=== PATIENT | female | born 1975 | race Caucasian/White ===

== ENCOUNTER 2017-03-11 12:05 | Emergency (ER) | payer MEDICAID ==
[2017-03-11] MEDS ORDERED: HYDROcod/ACETAM 5/325 MG TABLET PO STA (12:39)
[2017-03-11] MEDS ORDERED: HYDROcod/ACETAM 5/325 MG TABLET ONE (12:44)
== END 2017-03-11 12:47 | disposition home or self-care (01) ==
DX: K04.7 Periapical abscess without sinus (principal); S02.5XXA Fracture of tooth (traumatic), initial encounter for closed fracture; X58.XXXA Exposure to other specified factors, initial encounter; I10 Essential (primary) hypertension
CPT/HCPCS: 99283; A9270

== ENCOUNTER 2017-04-28 13:03 | Outpatient (CLI) | payer MEDICAID ==
[2017-04-28 14:53] LABS: HEMOGLOBIN A1C 0.88 g/dL
--- NOTE | 2017-04-28 15:40 | Ultrasound Report ---
ULTRASOUND RIGHT LATERAL LOWER LE04/28/2017 CLINICAL INDICATION: Palpable abnormality. TECHNIQUE: Real-time scanning was performed with career services representative static images obtained. FINDINGS: Ultrasound of the palpable abnormality identified by the patient was performed. At this site, there is a 0.7 x 0.6 x 0.4 cm lymph node. No sonographically suspicious findings are ap preciated. IMPRESSION: SMALL LYMPH NODE IN THE REGION OF THE PALPABLE ABNORMALITY. JOB #: [id number] EXT JOB #:
== END 2017-04-28 13:04 | disposition home or self-care (01) ==
LOC: DI 13:03
PROVIDERS: ATTEND Nurse Practitioner Gerontology
DX: R22.9 Localized swelling, mass and lump, unspecified (principal); R53.83 Other fatigue; E11.9 Type 2 diabetes mellitus without complications
CPT/HCPCS: 36415; 76882; 82306; 83036; 84443

== ENCOUNTER 2017-05-30 21:45 | Emergency (ER) | payer MEDICAID ==
[2017-05-30 21:50] VITALS: BP 153/94
[2017-05-30] MEDS ORDERED: CLINDAMYCIN 150 MG CAPSULE PO STA (21:55)
[2017-05-30] MEDS ORDERED: HYDROcod/ACET 5/325 Prepack 6 PO STA (21:55)
[2017-05-30] MEDS ORDERED: HYDROcod/ACET 5/325 Prepack 6 PO ONE (21:59)
--- NOTE | 2017-05-30 21:59 | ED Physician Documentation ---
PD HPI HEENT - Stated complaint Stated Complaint: RT FACIAL PAIN - Chief complaint Chief Complaint: Trauma Hd/Nk - History obtained from History obtained from: Patient - History of Present Illness Timing - onset: Other (Increasing pain of the right side of the jaw with mild facial swelling, no fevers. The pain is worse if she chews or opens her mouth or drinks hot or cold liquids. No URI symptoms. 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 HEENT: Tonsil/Adenoidectomy - Present Medications Home Medications: Ambulatory Orders Medication Instructions Recorded Confirmed Lisinopril [Zestril] 20 mg PO DAILY 06/10/13 03/11/17 Pregabalin [Lyrica] 225 mg PO BID 06/10/13 03/11/17 Metoprolol Tartrate 25 mg PO DAILY 01/17/15 03/11/17 Albuterol 1 mg INH ONCE PRN 01/13/16 03/11/17 Baclofen 10 mg PO TID PRN 01/13/16 03/11/17 Metformin HCl 500 mg PO BID 01/13/16 03/11/17 Venlafaxine HCl [Venlafaxine HCl 75 mg PO DAILY 01/13/16 03/11/17 ER] Cholecalciferol (Vitamin D3) 8,000 unit PO DAILY 01/25/16 03/11/17 [Vitamin D3] Amoxicillin 500 mg PO TID #30 capsule 03/11/17 Budesonide/Formoterol Fumarate 0 inh INH .FREQ 03/11/17 03/11/17 [Symbicort 160-4.5 Mcg Inhaler] HYDROcod/ACETAM 5/325 [[place] 5/325] 1 - 2 ea PO Q6H PRN #15 tablet 03/11/17 Clindamycin [Cleocin] 300 mg PO Q6H 10 Days 05/30/17 HYDROcod/ACETAM 5/325 [[place] 5/325] 1 - 2 ea PO Q6H PRN #15 tablet 05/30/17 - Allergies Allergies/Adverse Reactions: Allergies Allergy/AdvReac Type Severity Reaction Status Date / Time azithromycin Allergy Rash Verified 05/30/17 21:47 [From Zithromax Z-Javan] - Social History Does the pt smoke?: No Smoking Status: Never smoker Does the pt drink ETOH?: Yes Does the pt have substance abuse?: No - Immunizations Immunizations are current?: Yes - POLST Patient has POLST: No PD ED PE NORMAL - Vitals Vital signs reviewed: Yes - General General: Alert and oriented X 3, No acute distress - HEENT HEENT: Other (No trismus or facial swelling, TMs and canals are normal. She does have severe pain and tenderness of the second right mandibular premolar without sublingual edema.) - Neck Neck: Supple, no meningeal sign, No bony TTP - Neuro Neuro: Alert and oriented X 3, Normal speech - Psych Psych: Normal mood, Normal affect Results - Vitals Vitals: Vital Signs - 24 hr 05/30/17 21:48 Temperature 36.8 C Heart Rate 106 H Respiratory 20 Rate Blood Pressure 153/94 H O2 Saturation 100 Oxygen O2 Source Room air PD MEDICAL DECISION MAKING - ED course ED course: The [place] prescription monitoring program was queried with regard to this patient. No concerning findings were found. The patient and family were counseled as to the diagnosis and need for follow- up. I counseled the patient with regard to signs and symptoms that would necessitate an urgent reevaluation in the emergency department. They understand they are welcome to return at any time if worse or if not improving as expected. This document was made in part using voice recognition software. While efforts are made to proofread this documents, sound alike and grammatical errors may occur. Departure - Departure Disposition: 01 Home, Self Care Clinical Impression: Dental abscess Condition: Good Record reviewed to determine appropriate education?: Yes Instructions: ED Abscess Dental Prescriptions: Clindamycin [Cleocin] 300 mg PO Q6H 10 Days HYDROcod/ACETAM 5/325 [[place] 5/325] 1 - 2 ea PO Q6H PRN #15 tablet PRN Reason: Pain Comments: It is very important that she follow-up with a dentist. When it comes to dental problems like yours, the emergency department can only offer a short- term solution to your long-term problem. A couple of low cost options for dental care include: [facility] in [place], calls [phone] for an appointment Or [facility] in [place], call [phone] for an appointment. Your blood pressure was elevated today on check into the emergency department. This does not mean that you have hypertension, it is a common phenomenon to come to the emergency department and have elevated blood pressure. I recommend that she see her primary care physician within the week to have it rechecked when you are feeling better. Do not drink or drive while taking narcotic pain medication. Note that many narcotic pain relievers also contain Tylenol/acetaminophen. Please ensure that your total dose of acetaminophen from all sources does not exceed 3 g (3000 mg) per day. You may get constipated while on this medication. Take a stool softener such as Colace twice a day while you are on it. Also add an oezp-kvp-qkgzlqg laxative such as senna or MiraLAX on any day that you do not have a bowel movement. If you received a narcotic pain medication or sedative while in the emergency department, do not drive for the next 24 hours.
[2017-05-30] MEDS ORDERED: CLINDAMYCIN 150 MG CAPSULE PO ONE (22:00)
== END 2017-05-30 22:08 | disposition home or self-care (01) ==
LOC: ED 21:45
DX: K04.7 Periapical abscess without sinus (principal); I10 Essential (primary) hypertension
CPT/HCPCS: 99283; A9270

== ENCOUNTER 2017-07-04 09:56 | Outpatient (CLI) | payer MEDICAID ==
--- NOTE | 2017-07-04 11:42 | XRAY Report ---
FOUR-VIEW MANDIBLE: 07/04/2017 CLINICAL INDICATION: Infection. FINDINGS: AP, Chari's, bilateral oblique views of the mandible demonstrate no evidence of acute frac ture. No osteolysis is seen. No radiopaque foreign body is appreciated in the soft tissues. IMPRESSION: NORMAL MANDIBLE. JOB #: [id number] EXT JOB #:[id number]
== END 2017-07-04 09:57 | disposition home or self-care (01) ==
LOC: DI 09:56
PROVIDERS: ATTEND Physician Assistant
DX: M27.2 Inflammatory conditions of jaws (principal)
CPT/HCPCS: 70110

== ENCOUNTER 2019-03-31 11:36 | Outpatient (CLI) | payer OTHER, MEDICAID ==
--- NOTE | 2019-03-31 20:09 | XRAY Report ---
Reason: L-SPINE/LUMBAR PAIN, KNEE PAIN Procedure Date: 03/31/2019 Accession Number: [id number] / [id number] Procedure: XR - Lumbar Spine 2 View CPT Code: FULL RESULT: EXAM: LUMBOSACRAL SPINE RADIOGRAPHY. EXAM DATE: 03/31/2019 12:17 PM. CLINICAL HISTORY: L-spine/lumbar pain, knee pain. COMPARISONS: No lumbar comparison. CHEST ANGIO 06/11/2013 6:41 PM, XR CHEST PA AND LAT 12/26/2009 9:28 AM. TECHNIQUE: 3 views. FINDINGS: Alignment: No scoliosis. No significant listhesis. Accentuation of the lumbar lordosis. Bones: Five rjt-lrr-[id number] lumbar vertebral bodies are present. Small rudimentary pair of ribs at the T12 level (numbering designation confirmed with comparison to the chest CT angiogram). No fractures or bone lesions. Very mild anterior wedge configuration at T12 vertebral body is without change. Disks: Mild L4-L5 disk space narrowing. Facets: No degenerative changes. Sacroiliac Joints: Unremarkable. Soft Tissues: 3.2 cm right abdominal calcific density is compatible with cholelithiasis. The visualized bowel gas pattern is normal. IMPRESSION: 1. No acute adenopathy. 2. Mild L4-L5 degenerative disk disease. 3. Accentuation of the lumbar lordosis. 4. Evidence of cholelithiasis. RADIA
--- NOTE | 2019-03-31 20:09 | XRAY Report ---
Reason: L-SPINE/LUMBAR PAIN, KNEE PAIN Procedure Date: 03/31/2019 Accession Number: [id number] / [id number] Procedure: XR - Knee 3 View BILAT CPT Code: FULL RESULT: EXAMS: 1. RIGHT KNEE RADIOGRAPHY. 2. LEFT KNEE RADIOGRAPHY. EXAM DATE: 03/31/2019 12:14 PM. CLINICAL HISTORY:L-spine/lumbar pain, knee pain. COMPARISON: None. TECHNIQUE: 3 views each. FINDINGS: Bones: Normal. No fractures or bone lesions. Joints: Bilateral 3 compartment osteoarthritis which is mildly greater on the right than the left. Joint space narrowing is greatest in the patellofemoral and the medial compartments. There is moderate marginal spurring, greatest in the lateral and patellofemoral compartments. No subluxation. No definite joint effusion. Soft Tissues: Normal. No soft tissue swelling. IMPRESSION: 1. No acute abnormality. 2. Moderate 3 compartment osteoarthritis, right mildly greater than left. RADIA
== END 2019-03-31 11:37 | disposition home or self-care (01) ==
LOC: DI 11:36
DX: M51.36 Other intervertebral disc degeneration, lumbar region (principal); M40.56 Lordosis, unspecified, lumbar region; M17.0 Bilateral primary osteoarthritis of knee; K80.20 Calculus of gallbladder without cholecystitis without obstruction
CPT/HCPCS: 72100

== ENCOUNTER 2019-04-18 21:15 | Emergency (ER) | payer MEDICAID, OTHER ==
[2019-04-18] MEDS ORDERED: LIDOCAINE 2%-EPI 1:100000 20 ML MDV SUBQ STA (21:41)
--- NOTE | 2019-04-18 21:44 | ED Physician Documentation ---
History of Present Illness - Stated complaint Stated Complaint: PAIN IN RIGHT SIDE OF FACE - Chief complaint Chief Complaint: Heent - History obtained from History obtained from: Patient, Family - History of Present Illness Pain level max: 8 Pain level now: 8 - Additonal information Additional information: 43-year-old female presents to the emergency department the right lower facial swelling. This been ongoing issue for a few weeks. Has not seen a dentist. Was placed on penicillin but did not improve. Pain increasing today. No fevers. No coughing. No drainage. Nothing makes it better. 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 HEENT: Tonsil/Adenoidectomy - Present Medications Home Medications: Ambulatory Orders Medication Instructions Recorded Confirmed Lisinopril [Zestril] 20 mg PO DAILY 06/10/13 03/11/17 Pregabalin [Lyrica] 225 mg PO BID 06/10/13 03/11/17 Metoprolol Tartrate 25 mg PO DAILY 01/17/15 03/11/17 Albuterol 1 mg INH ONCE PRN 01/13/16 03/11/17 Baclofen 10 mg PO TID PRN 01/13/16 03/11/17 Metformin HCl 500 mg PO BID 01/13/16 03/11/17 Venlafaxine HCl [Venlafaxine HCl 75 mg PO DAILY 01/13/16 03/11/17 ER] Cholecalciferol (Vitamin D3) 8,000 unit PO DAILY 01/25/16 03/11/17 [Vitamin D3] Amoxicillin 500 mg PO TID #30 capsule 03/11/17 Budesonide/Formoterol Fumarate 0 inh INH .FREQ 03/11/17 03/11/17 [Symbicort 160-4.5 Mcg Inhaler] HYDROcod/ACETAM 5/325 [[place] 5/325] 1 - 2 ea PO Q6H PRN #15 tablet 03/11/17 Clindamycin [Cleocin] 300 mg PO Q6H 10 Days capsule 05/30/17 HYDROcod/ACETAM 5/325 [[place] 5/325] 1 - 2 ea PO Q6H PRN #15 tablet 05/30/17 Amox/Clav 875/125 [Augmentin] 1 each PO Q12H #20 tablet 04/18/19 Hydrocodone/Acetaminophen 1 - 2 each PO Q6H PRN #14 tablet 04/18/19 [Hydrocodon-Acetaminophen 5-325] - Allergies Allergies/Adverse Reactions: Allergies Allergy/AdvReac Type Severity Reaction Status Date / Time azithromycin Allergy Rash Verified 05/30/17 21:47 [From Zithromax Z-Javan] - Social History Does the pt smoke?: No Smoking Status: Never smoker Does the pt drink ETOH?: Yes Does the pt have substance abuse?: No - Immunizations Immunizations are current?: Yes - POLST Patient has POLST: No PD ED PE NORMAL - Vitals Vital signs reviewed: Yes - General General: Alert and oriented X 3, No acute distress - HEENT HEENT: Moist mucous membranes, Pharynx benign - Neck Neck: Supple, no meningeal sign - Cardiac Cardiac: RRR - Respiratory Respiratory: No respiratory distress, Clear bilaterally - Derm Derm: Warm and dry - Neuro Neuro: Alert and oriented X 3 PD ED PE EXPANDED - HEENT HEENT Visual: 1 - abscess (Gingival abscess along socket for tooth #28. poor dentition) Results - Vitals Vitals: Vital Signs - 24 hr 04/18/19 04/18/19 21:25 23:01 Temperature 36.8 C 36.1 C L Heart Rate 109 H 97 Respiratory 18 18 Rate Blood Pressure 154/106 H 129/69 O2 Saturation 99 97 Oxygen O2 Source Room air PD MEDICAL DECISION MAKING - ED course Complexity details: reviewed results, re-evaluated patient, considered different ial, d/w patient ED course: A needle aspiration was attempted, no return of purulence. Confirmed with ultrasound prior to attempting drainage. 2% lidocaine was utilized. Will place on antibiotics and follow-up closely with her dentist. No Daniel's angina. No evidence of airway impingement. Patient counseled regarding signs and symptoms for which I believe and urgent re-evaluation would be necessary. Patient with good understanding of and agreement to plan and is comfortable going home at this time This document was made in part using voice recognition software. While efforts are made to proofread this document, sound alike and grammatical errors may occur. Departure - Departure Disposition: 01 Home, Self Care Clinical Impression: Dental abscess Condition: Good Instructions: ED Abscess Dental Follow-Up: Alison Zurita ARNP [Primary Care Provider] - your,dentist in 3 days [Other] Prescriptions: Amox/Clav 875/125 [Augmentin] 1 each PO Q12H #20 tablet Hydrocodone/Acetaminophen [Hydrocodon-Acetaminophen 5-325] 1 - 2 each PO Q6H PRN #14 tablet PRN Reason: pain Comments: Take all antibiotics until gone. Return if you worsen. You need to follow-up with the dentist for further care. Do not drink alcohol or drive while on narcotic pain medicine. Note that many narcotic pain relievers also contain tylenol/acetaminophen. Please ensure that your total dose of acetaminophen from all sources does not exceed 3 grams (3000mg) per day. You may constipated on this medication, take a stool softener such as "Colace" twice a day while you are on it. Also recommend a hzie-wem-qtwcosn laxative such as senna or MiraLAX any day that you do not have a bowel movement. If you received narcotic pain medication in the emergency department, do not drive or operate machinery for the next 24 hours. Discharge Date/Time: 04/18/19 23:06
[2019-04-18] MEDS ORDERED: AMOX/CLAV 875 MG/125 MG TABLET PO STA (22:36)
[2019-04-18] MEDS ORDERED: HYDROcod/ACETAM 5/325 MG TABLET PO STA (22:40)
[2019-04-18 23:01] VITALS: BP 129/69
== END 2019-04-18 23:06 | disposition home or self-care (01) ==
LOC: ED 21:15
DX: K05.219 Aggressive periodontitis, localized, unspecified severity (principal); I10 Essential (primary) hypertension; Z79.899 Other long term (current) drug therapy
CPT/HCPCS: 41800; 99283; A9270

== ENCOUNTER 2019-09-08 21:42 | Emergency (ER) | payer MEDICAID ==
--- NOTE | 2019-09-08 22:04 | ED Physician Documentation ---
History of Present Illness - Stated complaint Stated Complaint: LT SIDE TOOTH ACHE, SOA - Chief complaint Chief Complaint: Cardiac - History obtained from History obtained from: Patient - History of Present Illness Timing: How many days ago (3) Pain level max: 10 Pain level now: 9 Improved by: nothing Worsened by: no exacerbating factors - Additonal information Additional information: c/o three days of gradual onset, steadily progressive tooth pain. she was T+R from ED earlier today, prescribed penicillin, zofran, and given 1 dose of vicodin but no rx for same. she says the vicodin didnt even touch it, and they told me to go back to emergency department if not getting better (per patient; she says she came to [facility] because it was closer than ). 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 : None HEENT: None Psych: Depression Musculoskeletal: Osteoarthritis, Chronic back pain Derm: None - Past Surgical History Past Surgical History: Yes General: EGD 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 HEENT: Tonsil/Adenoidectomy - Present Medications Home Medications: Ambulatory Orders Medication Instructions Recorded Confirmed Lisinopril [Zestril] 20 mg PO DAILY 06/10/13 09/08/19 Metoprolol Tartrate 25 mg PO DAILY 01/17/15 09/08/19 Albuterol 1 mg INH ONCE PRN 01/13/16 09/08/19 Metformin HCl 500 mg PO BID 01/13/16 09/08/19 Venlafaxine HCl [Venlafaxine HCl 75 mg PO DAILY 01/13/16 09/08/19 ER] Cholecalciferol (Vitamin D3) 8,000 unit PO DAILY 01/25/16 09/08/19 [Vitamin D3] Budesonide/Formoterol Fumarate 0 inh INH .FREQ 03/11/17 09/08/19 [Symbicort 160-4.5 Mcg Inhaler] Oxycodone HCl/Acetaminophen 1 - 2 each PO Q6H PRN #14 tablet 09/09/19 [Percocet 5-325 mg Tablet] - Allergies Allergies/Adverse Reactions: Allergies Allergy/AdvReac Type Severity Reaction Status Date / Time azithromycin Allergy Rash Verified 09/08/19 21:55 [From Zithromax Z-Javan] buspirone [From BuSpar] Allergy Unknown Verified 09/08/19 21:55 esomeprazole [From Nexium] Allergy Unknown Verified 09/08/19 21:55 methocarbamol [From Robaxin] Allergy Unknown Verified 09/08/19 21:55 - Social History Does the pt smoke?: No Smoking Status: Never smoker Does the pt drink ETOH?: Yes Does the pt have substance abuse?: No - Immunizations Immunizations are current?: Yes - POLST Patient has POLST: No PD ED PE NORMAL - Vitals Vital signs reviewed: Yes - General General: Alert and oriented X 3, No acute distress, Well developed/nourished - HEENT HEENT: Moist mucous membranes, Pharynx benign - Neck Neck: Supple, no meningeal sign - Cardiac Cardiac: No murmur, No gallop, No rub - Respiratory Respiratory: No respiratory distress, Clear bilaterally - Abdomen Abdomen: Soft, Non tender PD ED PE EXPANDED - HEENT HEENT: Other (TTP (percussion) of left maxillary 2nd molar (remnants; most of crown is absent) without erythema ,swelling, fluctuance. ) - Cardiac Cardiac: Tachy, Regular Rhythm Results - Vitals Vitals: Oxygen O2 Source Room air - EKG (time done) No standard instances Rate: Rate (enter#) (144), Tachy Rhythm: Sinus tachycardia [place]: Normal Intervals: Normal MI QRS: Normal Ischemia: Normal ST segments - Labs Labs: Laboratory Tests 09/08/19 09/08/19 09/08/19 22:00 22:00 22:00 WBC 10.6 RBC 4.72 Hgb 13.6 Hct 41.2 MCV 87.3 MCH 28.8 MCHC 33.0 RDW 13.7 Plt Count 280 MPV 9.2 Neut # (Auto) 8.3 H Lymph # (Auto) 1.5 [place] # (Auto) 0.7 Eos # (Auto) 0.0 Baso # (Auto) 0.0 Absolute Nucleated RBC 0.00 Nucleated RBC % 0.0 D-Dimer < 200.0 L Sodium 130 L Potassium 3.9 Chloride 100 L Carbon Dioxide 18 L Anion Gap 12.0 BUN 7 Creatinine 0.6 Estimated GFR (MDRD) 108 Glucose 435 H Calcium 9.4 Total Bilirubin 1.3 H AST 29 ALT 43 Alkaline Phosphatase 88 Total Protein 7.8 Albumin 3.6 Globulin 4.2 Albumin/Globulin Ratio 0.9 L Lipase 27 Urine Color Urine Clarity Urine pH Ur Specific [place] Urine Protein Urine Glucose (UA) Urine Ketones Urine Occult Blood Urine Nitrite Urine Bilirubin Urine Urobilinogen Ur Leukocyte Esterase Ur Microscopic Review Urine Culture Comments Serum Ketones 09/08/19 09/08/19 22:00 22:51 WBC RBC Hgb Hct MCV MCH MCHC RDW Plt Count MPV Neut # (Auto) Lymph # (Auto) [place] # (Auto) Eos # (Auto) Baso # (Auto) Absolute Nucleated RBC Nucleated RBC % D-Dimer Sodium Potassium Chloride Carbon Dioxide Anion Gap BUN Creatinine Estimated GFR (MDRD) Glucose Calcium Total Bilirubin AST ALT Alkaline Phosphatase Total Protein Albumin Globulin Albumin/Globulin Ratio Lipase Urine Color YELLOW Urine Clarity CLEAR Urine pH 6.0 Ur Specific [place] 1.010 Urine Protein NEGATIVE Urine Glucose (UA) >=1000 H Urine Ketones NEGATIVE Urine Occult Blood NEGATIVE Urine Nitrite NEGATIVE Urine Bilirubin NEGATIVE Urine Urobilinogen 0.2 (NORMAL) Ur Leukocyte Esterase NEGATIVE Ur Microscopic Review NOT INDICATED Urine Culture Comments NOT INDICATED Serum Ketones NEGATIVE - Rads (name of study) chest xray Radiology: Prelim report reviewed, See rad report PD MEDICAL DECISION MAKING - ED course Complexity details: reviewed results, re-evaluated patient, considered differential, d/w patient Departure - Departure Disposition: 01 Home, Self Care Clinical Impression: Pain, dental Dyspnea Qualifiers: Dyspnea type: unspecified Qualified Code(s): R06.00 - Dyspnea, unspecified Condition: Good Instructions: ED Tooth Pain, ED Dyspnea Shortness of Breath Follow-Up: Alison Zurita ARNP [Primary Care Provider] - Prescriptions: Oxycodone HCl/Acetaminophen [Percocet 5-325 mg Tablet] 1 - 2 each PO Q6H PRN #14 tablet PRN Reason: pain Comments: Follow up with dentist, next available appointment. Take the antibiotic as prescribed by [facility] emergency department Discharge Date/Time: 09/09/19 01:24
[2019-09-08 22:10] LABS: BASOPHILS % (AUTO) 0.4 %; EOSINOPHILS % (AUTO) 0.3 %; HGB - HEMOGLOBIN 13.6 g/dL (12.0-16.0); LYMPHOCYTES # (AUTO) 1.5 10^3/uL (1.5-3.5); MEAN CORPUSCULAR HEMOGLOBIN 28.8 pg (27.0-31.0); MEAN CORPUSCULAR VOLUME 87.3 fL (81.0-99.0); MEAN PLATELET VOLUME 9.2 fL (7.9-10.8); MONOCYTES # (AUTO) 0.7 10^3/uL (0.0-1.0); MONOCYTES % (AUTO) 6.3 %; NEUTROPHILS # (AUTO) 8.3 10^3/uL (1.5-6.6); NEUTROPHILS % (AUTO) 78.3 %; PLT - PLATELET COUNT 280 10^3/uL (130-450); RED BLOOD COUNT 4.72 10^6/uL (4.20-5.40); RED CELL DISTRIBUTION WIDTH 13.7 % (12.0-15.0); WHITE BLOOD COUNT 10.6 x10^3/uL (4.8-10.8)
[2019-09-08] MEDS ORDERED: LORazepam 2 MG/ML VIAL IVP STA (22:23)
[2019-09-08] MEDS ORDERED: MORPHINE 2 MG/ML CARPUJECT IVP STA (22:23)
[2019-09-08] MEDS ORDERED: SODIUM CHLORIDE 0.9% 500 ML IV STA ×2 (22:23→23:33)
[2019-09-08 22:24] LABS: ALBUMIN 3.6 g/dL (3.2-5.5); ALBUMIN/GLOBULIN RATIO 0.9 (1.0-2.2); BILIRUBIN,TOTAL 1.3 mg/dL (0.2-1.0); CALCIUM 9.4 mg/dL (8.5-10.3); CREATININE 0.6 mg/dL (0.4-1.0); TOTAL PROTEIN 7.8 g/dL (6.7-8.2)
--- NOTE | 2019-09-08 22:49 | XRAY Report ---
Reason: SOA Procedure Date: 09/08/2019 Accession Number: [id number] / [id number] Procedure: XR - Chest 1 View X-Ray CPT Code: 62662 FULL RESULT: EXAM: CHEST RADIOGRAPHY EXAM DATE: 09/08/2019 10:32 PM. CLINICAL HISTORY: Shortness of air. COMPARISON: XR CHEST PA AND LAT 11/20/2011 9:58 AM. TECHNIQUE: 1 view. FINDINGS: Lungs/Pleura: No focal opacities evident. No pleural effusion. No pneumothorax. Mediastinum: Within exam limitations, the cardiomediastinal contour is normal. Other: None. IMPRESSION: Normal single view chest. RADIA
[2019-09-08 22:54] LABS: BILIRUBIN,URINE NEGATIVE (NEGATIVE); GLUCOSE, URINE (UA) >=1000 mg/dL (NEGATIVE); KETONES,URINE (UA) NEGATIVE (NEGATIVE); LEUKOCYTE ESTERASE, URINE NEGATIVE (NEGATIVE); NITRITE,URINE NEGATIVE (NEGATIVE); OCCULT BLOOD,URINE NEGATIVE (NEGATIVE); PROTEIN,URINE NEGATIVE (NEGATIVE); UROBILINOGEN,URINE 0.2 (NORMAL) E.U./dL (NORMAL)
[2019-09-08 22:56] LABS: CLARITY,URINE CLEAR (CLEAR)
[2019-09-08] MEDS ORDERED: HYDROmorphone 1 MG/ML CARPUJECT IVP STA (23:33)
[2019-09-08] MEDS ORDERED: INSULIN REGULAR HUMAN 100 UNIT/1 ML 10 ML MDV SUBQ STA (23:34)
[2019-09-08] MEDS ORDERED: METOPROLOL 5 MG/5 ML VIAL IVP STA (23:54)
[2019-09-09] MEDS ORDERED: LORazepam 2 MG/ML VIAL IVP STA (00:01)
[2019-09-09] MEDS ORDERED: oxyCODONE/ACET 5/325 Prepack 4 PO STA (00:51)
[2019-09-09] MEDS ORDERED: METOPROLOL 5 MG/5 ML VIAL IVP STA (00:51)
[2019-09-09 01:24] VITALS: BP 152/95
== END 2019-09-09 01:24 | disposition home or self-care (01) ==
LOC: ED 21:42
DX: K08.89 Other specified disorders of teeth and supporting structures (principal); R06.00 Dyspnea, unspecified; R00.0 Tachycardia, unspecified; I10 Essential (primary) hypertension
CPT/HCPCS: 36415; 71045; 80053; 81003; 82009; 83690; 85025; 85379; 93005; 96361; 96374; 96375; 96376; 99283; 99284; J1170; J1815; J2060; 81001; 87086

== ENCOUNTER 2019-12-09 16:08 | Outpatient (CLI) | payer MEDICAID ==
--- NOTE | 2019-12-10 17:00 | Ultrasound Report ---
Reason: HEMATURIA, LOW BACK PAIN Procedure Date: 12/09/2019 Accession Number: [id number] / [id number] Procedure: US - Retroperitoneal CPT Code: Final Report FULL RESULT: EXAM: RENAL ULTRASOUND EXAM DATE: 12/09/2019 03:10 PM. CLINICAL HISTORY: Hematuria, low back pain. COMPARISON: None. TECHNIQUE: Real-time scanning was performed with static images obtained. FINDINGS: Imaging is limited by patient body habitus. Right Kidney: 15.2 cm. Normal echotexture with no stones, contour-deforming masses, or hydronephrosis. Left Kidney: 15.3 cm. Normal echotexture with no stones, contour-deforming masses, or hydronephrosis. Bladder: Ureteral jets are not appreciated. The prevoid bladder volume was 61 cc. The postvoid bladder volume was not obtained. Other: None. IMPRESSION: No urinary obstruction and no renal calculi, a limited study. RADIA
== END 2019-12-09 16:09 | disposition home or self-care (01) ==
LOC: DI 16:08
PROVIDERS: ATTEND Nurse Practitioner Gerontology
DX: R31.9 Hematuria, unspecified (principal); M54.5 Low back pain
CPT/HCPCS: 76770

== ENCOUNTER 2020-02-03 08:00 | Outpatient (CLI) | payer MEDICAID ==
[2020-02-03 14:40] LABS: HB2 TOTAL 14.1 g/dL; HEMOGLOBIN A1C 1.53 g/dL; HEMOGLOBIN A1C % 12.1 % (4.6-6.2)
== END 2020-02-03 23:59 | disposition home or self-care (01) ==
LOC: LAB.N 08:00
PROVIDERS: ATTEND Nurse Practitioner Gerontology
DX: E11.9 Type 2 diabetes mellitus without complications (principal)
CPT/HCPCS: 36415; 83036

== ENCOUNTER 2020-10-20 08:00 | Outpatient (CLI) | payer MEDICAID ==
[2020-10-20 18:28] LABS: BASOPHILS # (AUTO) 0.1 10^3/uL (0.0-0.1); BASOPHILS % (AUTO) 0.5 %; EOSINOPHILS # (AUTO) 0.1 10^3/uL (0.0-0.7); HGB - HEMOGLOBIN 13.1 g/dL (12.0-16.0); LYMPHOCYTES # (AUTO) 3.1 10^3/uL (1.5-3.5); LYMPHOCYTES % (AUTO) 25.8 %; MEAN CORPUSCULAR HEMOGLOBIN 26.7 pg (27.0-31.0); MEAN CORPUSCULAR HGB CONC 31.3 g/dL (32.0-36.0); MEAN CORPUSCULAR VOLUME 85.3 fL (81.0-99.0); MEAN PLATELET VOLUME 9.5 fL (7.9-10.8); MONOCYTES # (AUTO) 0.7 10^3/uL (0.0-1.0); MONOCYTES % (AUTO) 5.6 %; NEUTROPHILS # (AUTO) 7.9 10^3/uL (1.5-6.6); NEUTROPHILS % (AUTO) 66.7 %; PLT - PLATELET COUNT 385 10^3/uL (130-450); RED CELL DISTRIBUTION WIDTH 14.3 % (12.0-15.0); WHITE BLOOD COUNT 11.9 x10^3/uL (4.8-10.8)
[2020-10-20 18:48] LABS: ALBUMIN 3.5 g/dL (3.2-5.5); ALBUMIN/GLOBULIN RATIO 0.9 (1.0-2.2); ALKALINE PHOSPHATASE 79 IU/L (42-121); ALT ALANINE AMINOTRANSFERASE 29 IU/L (10-60); AST ASPARTATE AMINOTRANSFERASE 23 IU/L (10-42); BILIRUBIN,TOTAL 0.6 mg/dL (0.2-1.0); BUN - BLOOD UREA NITROGEN 15 mg/dL (6-20); CALCIUM 9.2 mg/dL (8.5-10.3); CARBON DIOXIDE - CO2 19 mmol/L (21-32); CHLORIDE 100 mmol/L (101-111); CHOL/HDL RATIO 5.7 (<4.4); CHOLESTEROL 292 mg/dL; CREATININE 0.7 mg/dL (0.4-1.0); GLUCOSE 340 mg/dL (70-100); HDL CHOLESTEROL 51 mg/dL; LDL CHOLESTEROL,CALCULATED 183 mg/dL; LDL/HDL RATIO 3.6 (<4.4); SODIUM 132 mmol/L (135-145); TOTAL PROTEIN 7.5 g/dL (6.7-8.2); VLDL CHOLESTEROL 58 mg/dL
[2020-10-20 20:13] LABS: HEMOGLOBIN A1c% 11.5 % (4.27-6.07)
== END 2020-10-20 23:59 | disposition home or self-care (01) ==
LOC: LAB.WCP 08:00
PROVIDERS: ATTEND Nurse Practitioner Family
DX: I10 Essential (primary) hypertension (principal); E11.9 Type 2 diabetes mellitus without complications; E66.01 Morbid (severe) obesity due to excess calories
CPT/HCPCS: 36415; 80050; 80061; 83036; 83721

== ENCOUNTER 2020-10-28 08:00 | Outpatient (CLI) | payer MEDICAID ==
[2020-10-29 17:52] LABS: CREATININE,URINE 114.3 mg/dL; MICROALBUMIN,URINE 0.8 mg/dL (0-300.0)
== END 2020-10-28 23:59 | disposition home or self-care (01) ==
LOC: LAB.R 08:00
PROVIDERS: ATTEND Nurse Practitioner Family
DX: E11.9 Type 2 diabetes mellitus without complications (principal)
CPT/HCPCS: 82043; 82570

== ENCOUNTER 2021-01-23 22:42 | Emergency (ER) | payer MEDICAID ==
--- NOTE | 2021-01-23 22:59 | ED Physician Documentation ---
PD HPI HEENT - Stated complaint Stated Complaint: L SIDE OF FACE PX - Chief complaint Chief Complaint: Heent - History obtained from History obtained from: Patient - History of Present Illness Timing - onset: Yesterday Timing - details: Gradual onset, Constant Pain level now: 6 Location: Left ear Improves: Nothing Associated symptoms: No: Fever Recently seen: Not recently seen - Additional information Additional information: c/o left ear pain since yesterday, gradual onset but steadily progressive. the pain radiates to left jaw and left anterolateral neck. she also c/o dental pain with foul-tasting discharge from the affected tooth (left mandibular 1st molar). she has an appointment with PMD this coming Monday but the ear pain became too severe to wait. inadequate relief with ibuprofen and tylenol Review of Systems Constitutional: reports: Reviewed and negative Ears: reports: Ear pain. 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 : None HEENT: None Psych: Depression Musculoskeletal: Osteoarthritis, Chronic back pain Derm: None - Past Surgical History Past Surgical History: Yes General: EGD Ortho: Other /SALES APPOINTMENT COORDINATOR: section HEENT: Tonsil/Adenoidectomy - Present Medications Home Medications: Ambulatory Orders Medication Instructions Recorded Confirmed lisinopriL [Zestril] 20 mg PO DAILY 06/10/13 01/23/21 Metoprolol Tartrate 25 mg PO DAILY 01/17/15 01/23/21 Albuterol 1 mg INH ONCE PRN 01/13/16 09/08/19 Metformin HCl 500 mg PO BID 01/13/16 01/23/21 Venlafaxine HCl [Venlafaxine HCl 75 mg PO DAILY 01/13/16 01/23/21 ER] Cholecalciferol (Vitamin D3) 8,000 unit PO DAILY 01/25/16 01/23/21 [Vitamin D3] Budesonide/Formoterol Fumarate 0 inh INH .FREQ 03/11/17 01/23/21 [Symbicort 160-4.5 Mcg Inhaler] Clindamycin [Cleocin] 300 mg PO Q6H 7 Days 01/23/21 HYDROcod/ACETAM 5/325 [[place] 5/325] 1 - 2 ea PO Q6H PRN #15 tablet 01/23/21 Insulin Glargine [Lantus Solostar] 100 unit SQ 01/23/21 - Allergies Allergies/Adverse Reactions: Allergies Allergy/AdvReac Type Severity Reaction Status Date / Time azithromycin Allergy Rash Verified 01/23/21 22:58 [From Zithromax Z-Javan] buspirone [From BuSpar] Allergy Unknown Verified 01/23/21 22:58 esomeprazole [From Nexium] Allergy Unknown Verified 01/23/21 22:58 methocarbamol [From Robaxin] Allergy Unknown Verified 01/23/21 22:58 - Social History Does the pt smoke?: No Smoking Status: Never smoker Does the pt drink ETOH?: Yes Does the pt have substance abuse?: No - Immunizations Immunizations are current?: Yes - POLST Patient has POLST: No PD ED PE NORMAL - Vitals Vital signs reviewed: Yes - General General: Alert and oriented X 3, No acute distress, Well developed/nourished PD ED PE EXPANDED - HEENT HEENT: Other (Mild erythema and swelling of left external auditory canal at entrance but more medial (inner) aspect of the auditory canal is clear. Normal left TM. The focal swelling and erythema is tender to palpation but without fluctuate) HEENT Visual: 1 - tenderness (posterior half of crown is absent. the tooth is TTP but no visualized discharge, erythema, or swelling) Results - Vitals Vitals: Vital Signs - 24 hr 01/23/21 01/23/21 22:45 23:49 Temperature 36.9 C Heart Rate 122 H 95 Respiratory 18 16 Rate Blood Pressure 156/100 H 143/88 H O2 Saturation 98 99 Oxygen O2 Source Room air PD MEDICAL DECISION MAKING - ED course Complexity details: reviewed old records, considered differential, d/w patient ED course: left external otits media appears to be early in course. she is diabetic and thus at risk for complications such as malignant external otitis and so will be prescribed both topical abx drops and PO abx; the oral antibiotic will potentially help with the dental pain (no evidence of infection but she describes foul-tasting discharge from the tooth). Departure - Departure Disposition: 01 Home, Self Care Clinical Impression: Otitis externa, Toothache Condition: Good Instructions: ED Tooth Pain, ED Otitis Externa Follow-Up: LYSSA SAINZ, MSN, PILLOW FILLER [Primary Care Provider] - Prescriptions: Clindamycin [Cleocin] 300 mg PO Q6H 7 Days HYDROcod/ACETAM 5/325 [[place] 5/325] 1 - 2 ea PO Q6H PRN #15 tablet PRN Reason: Pain Comments: Use the antibiotic drops as follows: 3 drops in left ear twice per day for one week Discharge Date/Time: 01/23/21 23:58
[2021-01-23] MEDS ORDERED: CIPROFLOX/DEXAMETH OTIC DROPS LEFTEAR STA (23:18)
[2021-01-23] MEDS ORDERED: CLINDAMYCIN 150 MG CAPSULE PO STA (23:19)
[2021-01-23] MEDS ORDERED: HYDROcod/ACETAM 5/325 MG TABLET PO STA (23:19)
[2021-01-24 00:53] VITALS: BP 143/88
== END 2021-01-23 23:58 | disposition home or self-care (01) ==
LOC: ED 22:42
DX: H60.92 Unspecified otitis externa, left ear (principal); K08.89 Other specified disorders of teeth and supporting structures; I10 Essential (primary) hypertension; E11.9 Type 2 diabetes mellitus without complications; Z79.4 Long term (current) use of insulin
CPT/HCPCS: 99282; 99283; A9270

== ENCOUNTER 2021-01-27 16:01 | Emergency (ER) | payer MEDICAID ==
[2021-01-27 16:08] VITALS: BP 163/119
[2021-01-27] MEDS ORDERED: BUFFERED LIDOCAINE 10 ML SYRINGE IU ONE (16:27)
--- NOTE | 2021-01-27 16:30 | ED Physician Documentation ---
History of Present Illness - Stated complaint Stated Complaint: SWELLING/PX L JAW - Chief complaint Chief Complaint: Heent - History obtained from History obtained from: Patient - Additonal information Additional information: Patient comes emergency department chief complaint of increasing pain and swelling along her left mandible. Patient states that started several days ago, and patient was placed on clindamycin 2 days ago. She states that it just does not seem to be getting any better, and that her doctor told her to come here. Patient denies any difficulty breathing. She does not have any known tooth decay. She denies any fevers. No sore throat. No other complaints at this time. Review of Systems Ten Systems: 10 systems reviewed and negative Constitutional: reports: Reviewed and negative Eyes: reports: Reviewed and negative Ears: reports: Reviewed and negative Nose: reports: Reviewed and negative Throat: reports: Oral lesions / sores Cardiac: reports: Reviewed and negative Respiratory: reports: Reviewed and negative GI: reports: Reviewed and negative : reports: Reviewed and negative Skin: reports: Reviewed and negative Musculoskeletal: reports: Reviewed and negative Neurologic: reports: Reviewed and negative Psychiatric: reports: Reviewed and negative Endocrine: reports: Reviewed and negative Immunocompromised: reports: Reviewed and negative PD PAST MEDICAL HISTORY - Past Medical History Cardiovascular: Hypertension Respiratory: Asthma, Shortness of breath Neuro: Motion sickness Endocrine/Autoimmune:  GI: Cholelithiasis CLINICAL CARE LEADER: None : None HEENT: None Psych: Depression Musculoskeletal: Osteoarthritis, Chronic back pain Derm: None - Past Surgical History Past Surgical History: Yes General: EGD Ortho: Other /CLINICAL CARE LEADER: section HEENT: Tonsil/Adenoidectomy - Present Medications Home Medications: Ambulatory Orders Medication Instructions Recorded Confirmed lisinopriL [Zestril] 20 mg PO DAILY 06/10/13 01/27/21 Metoprolol Tartrate 25 mg PO DAILY 01/17/15 01/27/21 Albuterol 1 puffs INH ONCE PRN 01/13/16 01/27/21 Metformin HCl 500 mg PO BID 01/13/16 01/27/21 Venlafaxine HCl [Venlafaxine HCl 75 mg PO DAILY 01/13/16 01/27/21 ER] Cholecalciferol (Vitamin D3) 8,000 unit PO DAILY 01/25/16 01/27/21 [Vitamin D3] Budesonide/Formoterol Fumarate 0 inh INH .FREQ 03/11/17 01/27/21 [Symbicort 160-4.5 Mcg Inhaler] Clindamycin [Cleocin] 300 mg PO Q6H 7 Days 01/23/21 01/27/21 HYDROcod/ACETAM 5/325 [[place] 5/325] 1 - 2 ea PO Q6H PRN #15 tablet 01/23/21 01/27/21 Insulin Glargine [Lantus Solostar] 40 unit SQ DAILY 01/23/21 01/27/21 traMADol [Ultram] 100 mg PO Q6H PRN #20 tablet 01/27/21 - Allergies Allergies/Adverse Reactions: Allergies Allergy/AdvReac Type Severity Reaction Status Date / Time azithromycin Allergy Rash Verified 01/27/21 16:03 [From Zithromax Z-Javan] buspirone [From BuSpar] Allergy Unknown Verified 01/27/21 16:03 esomeprazole [From Nexium] Allergy Unknown Verified 01/27/21 16:03 methocarbamol [From Robaxin] Allergy Unknown Verified 01/27/21 16:03 - Social History Does the pt smoke?: No Smoking Status: Never smoker Does the pt drink ETOH?: Yes Does the pt have substance abuse?: No - Immunizations Immunizations are current?: Yes - POLST Patient has POLST: No PD ED PE NORMAL - Vitals Vital signs reviewed: Yes - General General: Alert and oriented X 3, No acute distress - HEENT HEENT: Atraumatic, PERRL, EOMI, Moist mucous membranes, Other (Moderate edema and induration along left anterior mandible. Marked gingival edema in the same area with some fluctuance. Scattered pustules noted. No elevation of tongue. No obvious tooth decay. Entire area is tender to palpation. No findings at angle of mandible.) - Neck Neck: Supple, no meningeal sign, No adenopathy - Respiratory Respiratory: No respiratory distress - Derm Derm: Normal color, Warm and dry, No rash - Extremities Extremities: No deformity - Neuro Neuro: Alert and oriented X 3 - Psych Psych: Normal mood, Normal affect Results - Vitals Vitals: Oxygen O2 Source Room air Procedures - Abscess I&D (location) intraoral Preparation: Lidocaine 1% Incision: Incised with scalpel, Irrigated, Packed, Other (Mild purulence with blood.) Other: Pt tolerated well PD MEDICAL DECISION MAKING - ED course Complexity details: considered differential, d/w patient ED course: Pt appeared to have a dental abscess in her left mandibular area. I discussed with her that her antibiotics are unlikely to be fully effective unless the a bscess is drained. The patient was advised that she could try hot packing at home, but this is unlikely to be effective in a timely manner, and as such, I did recommend I&D. The patient was agreeable to the plan. This was performed at point of maximal induration and fluctuance, with surprisingly minimal purulent drainage. Pressure was held until bleeding was controlled, and sulcus packed with 4x4s. We have discussed that she should stay on the clindamycin, as it is an appropriate choice, and she has only been on it for 2 days. We have discussed the usual indications for return. Departure - Departure Disposition: 01 Home, Self Care Clinical Impression: Dental abscess Condition: Stable Instructions: ED Abscess Dental Prescriptions: traMADol [Ultram] 100 mg PO Q6H PRN #20 tablet PRN Reason: Pain Comments: The abscessed area has been lanced. There may be other small pockets of pus that need to drain, and this will occur over time, now that we have open the area. You should continue on the clindamycin, as this is an appropriate antibiotic for the sort of infection. Keep the gauze in place tonight to allow the small vessels in the area of the incision to cinch up, so that you do not have further bleeding. Starting tomorrow, you may place a hot tea bag in the space between your gum in your cheek where it is infected to help encourage drainage of any further pus. Please take the antibiotics every day, as directed, until you have finished the course. Please make an appointment to see a dentist as soon as possible. Call first thing tomorrow to make this appointment. If you develop any difficulty breathing or swallowing, please return to the emergency department Discharge Date/Time: 01/27/21 18:30
== END 2021-01-27 18:30 | disposition home or self-care (01) ==
LOC: ED 16:01
DX: K04.7 Periapical abscess without sinus (principal); I10 Essential (primary) hypertension
CPT/HCPCS: 41800; 99282; 99284

== ENCOUNTER 2021-05-22 09:18 | Outpatient (CLI) | payer MEDICAID ==
--- NOTE | 2021-05-22 12:12 | Ultrasound Report ---
PROCEDURE: Abdomen Limited INDICATIONS: GALLSTONES TECHNIQUE: Real-time focused scanning was performed of the abdomen, with image documentation. COMPARISON: 12/09/2019, 181, 06/10/2013 FINDINGS: The liver demonstrates prominent size. The liver demonstrates moderately increased echoge nicity, which limits ultrasound sensitivity for detection of masses. Multiple gallstones are seen within the gallbladder, with the largest measuring approximately 2.2 cm. A nonmobile 1.8 cm stone can be seen within the gallbladder neck. The gallbladder wall is mildly thi ckened at 4 mm. There is no specific pericholecystic fluid. The sonographic Alexander's sign is negative . No biliary ductal dilatation is seen. The common bile duct measures 6 mm. The visualized pancreas is within normal limits. The visualized right kidney is unremarkable. This study is limited by body habitus and bowel gas. IMPRESSION: Multiple gallstones are seen, including a nonmobile gallstone within the gallbladder neck. There is a ssociated mild gallbladder wall thickening, yet without additional specific signs of cholecystitis. No biliary dilatation is seen. Please correlate with patient presentation, clinical examination findings, and laboratory values, as appropriate. Enlarged, fatty liver noted. Reviewed by: Albaro Barrera MD on 05/22/2021 11:11 AM ÁNGEL Approved by: Albaro Barrera MD on 05/22/2021 11:11 AM ÁNGEL Station ID: [id number]
== END 2021-05-22 09:19 | disposition home or self-care (01) ==
LOC: DI 09:18
PROVIDERS: ATTEND Physician Assistant Medical
DX: K80.20 Calculus of gallbladder without cholecystitis without obstruction (principal); K76.0 Fatty (change of) liver, not elsewhere classified

== ENCOUNTER 2021-07-16 09:33 | Outpatient (CLI) | payer MEDICAID | END 2021-07-16 09:34 | disposition home or self-care (01) | LOC: LAB 09:33 | DX: C56.2 Malignant neoplasm of left ovary (principal) | CPT/HCPCS: 36415; 86304 ==

== ENCOUNTER 2021-08-25 15:46 | Outpatient (CLI) | payer MEDICAID ==
--- NOTE | 2021-08-26 08:55 | Ultrasound Report ---
PROCEDURE: Pelvic w/Transvaginal INDICATIONS: OVARIAN MASS TECHNIQUE: Real-time scanning was performed of the pelvic organs, with image documentation. Additional endovagi nal scanning was necessary due to incomplete visualization of the adnexal and endometrial structures by transabdominal scanning. COMPARISON: February 19, 2013 FINDINGS: UTERUS: Anteverted, heterogeneous echotexture, and measures 9.2 x 5 x 5.8 cm. A intramural/submucosal rounded hypoechoic lesion is seen in the right anterior uterus, measuring 1.4 x 1.5 x 1.5 cm. The endometrial thickness measures 9.3 mm. An IUD is suboptimally visualized. Hypoechoic lesions are seen within the cervix, compatible with nabothian cysts. RIGHT OVARY: Measures 3 x 2.6 cm. Color-flow projects over the ovarian tissue. LEFT OVARY: Measures 2.9 x 2.7 x 3.7 cm. Color-flow projects over the ovarian tissue. A 2.3 x 2.1 x 3 .4 cm hypoechoic lesion is seen in the left ovary, which is not well seen. OTHER: None. IMPRESSION: 1.Uterine fibroid as detailed above. 2.Hypoechoic lesion in the left ovary, which is not well seen but may reflect a hemorrhagic cyst. Con entrance guard sonographic follow-up in 4-6 weeks to ensure resolution or decrease in size. Reviewed by: William Hopkins MD on 08/26/2021 8:54 AM PDT Approved by: William Hopkins MD on 08/26/2021 8:54 AM PDT Station ID: [id number]
== END 2021-08-25 15:47 | disposition home or self-care (01) ==
LOC: DI 15:46
PROVIDERS: ATTEND Physician Assistant Medical
DX: N83.9 Noninflammatory disorder of ovary, fallopian tube and broad ligament, unspecified (principal); D25.1 Intramural leiomyoma of uterus; R93.89 Abnormal findings on diagnostic imaging of other specified body structures

== ENCOUNTER 2022-02-14 11:53 | Outpatient (CLI) | payer MEDICAID | END 2022-02-14 11:54 | disposition home or self-care (01) | LOC: LAB.R 11:53 | PROVIDERS: ATTEND Physician Assistant Medical | DX: L02.91 Cutaneous abscess, unspecified (principal) | CPT/HCPCS: 87070; 87077; 87181; 87205 ==

== ENCOUNTER 2022-03-21 13:06 | Outpatient (CLI) | payer MEDICAID ==
[2022-03-21 13:26] LABS: BASOPHILS # (AUTO) 0.1 10^3/uL (0.0-0.1); BASOPHILS % (AUTO) 0.4 %; EOSINOPHILS # (AUTO) 0.1 10^3/uL (0.0-0.7); EOSINOPHILS % (AUTO) 1.2 %; HCT - HEMATOCRIT 36.5 % (37.0-47.0); HGB - HEMOGLOBIN 11.6 g/dL (12.0-16.0); LYMPHOCYTES # (AUTO) 2.9 10^3/uL (1.5-3.5); MEAN CORPUSCULAR HEMOGLOBIN 25.7 pg (27.0-31.0); MEAN CORPUSCULAR HGB CONC 31.8 g/dL (32.0-36.0); MEAN CORPUSCULAR VOLUME 80.8 fL (81.0-99.0); MEAN PLATELET VOLUME 8.8 fL (7.9-10.8); MONOCYTES # (AUTO) 0.7 10^3/uL (0.0-1.0); MONOCYTES % (AUTO) 5.7 %; NEUTROPHILS # (AUTO) 7.9 10^3/uL (1.5-6.6); NEUTROPHILS % (AUTO) 67.4 %; PLT - PLATELET COUNT 409 10^3/uL (130-450); RED BLOOD COUNT 4.52 10^6/uL (4.20-5.40); WHITE BLOOD COUNT 11.7 x10^3/uL (4.8-10.8)
[2022-03-21 13:42] LABS: ESTIMATED AVERAGE GLUCOSE 214 mg/dL (70-100); HEMOGLOBIN A1c% 9.1 % (4.27-6.07)
[2022-03-21 13:48] LABS: ALBUMIN 3.5 g/dL (3.2-5.5); ALBUMIN/GLOBULIN RATIO 0.8 (1.0-2.2); ALKALINE PHOSPHATASE 76 IU/L (42-121); ALT ALANINE AMINOTRANSFERASE 21 IU/L (10-60); AST ASPARTATE AMINOTRANSFERASE 21 IU/L (10-42); BILIRUBIN,TOTAL 0.4 mg/dL (0.2-1.0); BUN - BLOOD UREA NITROGEN 10 mg/dL (6-20); CALCIUM 8.8 mg/dL (8.5-10.3); CARBON DIOXIDE - CO2 22 mmol/L (21-32); CHLORIDE 101 mmol/L (101-111); CHOLESTEROL 170 mg/dL; CREATININE 0.6 mg/dL (0.4-1.0); GFR - MDRD 107 (>89); GLUCOSE 246 mg/dL (70-100); HDL CHOLESTEROL 43 mg/dL; LDL CHOLESTEROL,CALCULATED 94 mg/dL; LDL/HDL RATIO 2.2 (<4.4); POTASSIUM 3.8 mmol/L (3.5-5.0); SODIUM 134 mmol/L (135-145); TOTAL PROTEIN 7.8 g/dL (6.7-8.2); TRIGLYCERIDES 166 mg/dL; VLDL CHOLESTEROL 33 mg/dL
[2022-03-21 13:57] LABS: THYROID STIMULATING HORMONE 1.74 uIU/mL (0.34-5.60)
[2022-03-21 14:49] LABS: CREATININE,URINE 190.7 mg/dL; MICROALBUM/CREATININE RATIO,UR 50.3 ug/mg (<30.0); MICROALBUMIN,URINE 9.6 mg/dL (0-300.0)
== END 2022-03-21 13:07 | disposition home or self-care (01) ==
LOC: LAB 13:06
PROVIDERS: ATTEND Physician Assistant Medical
DX: E78.5 Hyperlipidemia, unspecified (principal); I10 Essential (primary) hypertension; E11.9 Type 2 diabetes mellitus without complications
CPT/HCPCS: 36415; 80050; 80061; 82043; 82570; 83036; 83721

== ENCOUNTER 2022-08-05 13:31 | Outpatient (CLI) | payer MEDICAID ==
--- NOTE | 2022-08-08 08:59 | Mammography Report ---
BILATERAL DIGITAL SCREENING MAMMOGRAM 3D/2D: 08/05/2022 CLINICAL: Routine screening. Baseline exam. No prior exams were available for comparison. Both breasts are heterogeneously dense, which may obscure small masses (category c / 51-75% glandula r tissue). There is a benign calcification in the left breast. No significant masses, calcifications, or other findings are seen in either breast. IMPRESSION: BENIGN There is no mammographic evidence of malignancy. A 1 year screening mammogram is recommended. Based on the Tyrer Cuzick model (a risk assessment model) the patients lifetime risk is 10.2% and he r 10 year risk is 2.3%. According to the ACR, ACS, and NCCN guidelines, an annual breast MRI exam joce ng with mammogram is recommended if the patients lifetime risk is 20% or greater. This exam was interpreted at Station ID: [id number]. NOTE: For mammograms, a report in lay terms will be sent to the patient. Approximately 15% of breast malignancies will not be visualized mammographically. In the management of a palpable breast mass, a negative mammogram must not discourage biopsy of a clinically suspicious lesion. Electronically Signed By: Juan Mckeon acr/penrad:08/05/2022 15:58:53 ACR BI-RADS Category 2: Benign Finding(s) 3342F PARENCHYMAL PATTERN: (D) - The breast(s) demonstrate(s) heterogeneously dense fibroglandular parenchy ma. BI-RADS CATEGORY: (2) - 2 RECOMMENDATION: (ANNUAL) - Recommend routine annual screening mammography. [id number] 1 year screening LATERALITY: (B)
== END 2022-08-05 13:32 | disposition home or self-care (01) ==
LOC: DI 13:31
DX: Z12.31 Encounter for screening mammogram for malignant neoplasm of breast (principal)

== ENCOUNTER 2022-11-18 09:36 | Outpatient (CLI) | payer MEDICAID ==
[2022-11-18 10:10] LABS: ALBUMIN 3.8 g/dL (3.2-5.5); ALBUMIN/GLOBULIN RATIO 0.9 (1.0-2.2); ALKALINE PHOSPHATASE 97 IU/L (42-121); ALT ALANINE AMINOTRANSFERASE 23 IU/L (10-60); AST ASPARTATE AMINOTRANSFERASE 17 IU/L (10-42); BILIRUBIN,TOTAL 0.6 mg/dL (0.2-1.0); BUN - BLOOD UREA NITROGEN 13 mg/dL (6-20); CALCIUM 9.3 mg/dL (8.5-10.3); CARBON DIOXIDE - CO2 24 mmol/L (21-32); CHLORIDE 98 mmol/L (101-111); CHOL/HDL RATIO 4.5 (<4.4); CHOLESTEROL 207 mg/dL; CREATININE 0.8 mg/dL (0.4-1.0); GFR - MDRD 76 (>89); GLUCOSE 299 mg/dL (70-100); HDL CHOLESTEROL 46 mg/dL; LDL CHOLESTEROL,CALCULATED 107 mg/dL; LDL/HDL RATIO 2.3 (<4.4); POTASSIUM 3.6 mmol/L (3.5-5.0); SODIUM 132 mmol/L (135-145); TRIGLYCERIDES 271 mg/dL; VLDL CHOLESTEROL 54 mg/dL
[2022-11-18 10:20] LABS: THYROID STIMULATING HORMONE 4.22 uIU/mL (0.34-5.60)
[2022-11-18 11:54] LABS: ESTIMATED AVERAGE GLUCOSE 280 mg/dL (70-100); HEMOGLOBIN A1c% 11.4 % (4.27-6.07)
== END 2022-11-18 09:37 | disposition home or self-care (01) ==
LOC: LAB 09:36
PROVIDERS: ATTEND Physician Assistant Medical
DX: E11.9 Type 2 diabetes mellitus without complications (principal)
CPT/HCPCS: 36415; 80053; 80061; 83036; 83721; 84443

== ENCOUNTER 2023-06-07 09:50 | Outpatient (CLI) | payer MEDICAID ==
[2023-06-07 10:14] LABS: CALCIUM 9.6 mg/dL (8.5-10.3); CREATININE 0.7 mg/dL (0.6-1.3); POTASSIUM 3.9 mmol/L (3.5-4.5)
[2023-06-07 10:21] LABS: MICROALBUMIN,URINE < 0.7 mg/dL
[2023-06-07 12:33] LABS: ESTIMATED AVERAGE GLUCOSE 223 mg/dL (70-100); HEMOGLOBIN A1c% 9.4 % (4.27-6.07)
== END 2023-06-07 09:51 | disposition home or self-care (01) ==
LOC: LAB 09:50
PROVIDERS: ATTEND Physician Assistant Medical
DX: E11.9 Type 2 diabetes mellitus without complications (principal)
CPT/HCPCS: 36415; 80048; 82043; 82570; 83036

== ENCOUNTER 2023-07-10 12:36 | Outpatient (CLI) | payer MEDICAID ==
--- NOTE | 2023-07-10 17:58 | Ultrasound Report ---
PROCEDURE: Head or Neck Soft Tissue INDICATIONS: NECK MASS TECHNIQUE: Real-time scanning was performed of the thyroid gland, with image documentation. COMPARISON: None FINDINGS: Right: Thyroid lobe measures 5.0 x 2.0 x 2.5 cm, and is homogeneous in echotexture. Left: Thyroid lobe measures 4.6 x 2.3 x 1.7 cm, and is homogenous in echotexture. Isthmus: 10 mm thick. Nodule number: One Location: Right medial inferior Size: 1.2 x 1.2 x 1.1 cm. Composition: Solid. Echogenicity: Hypoechoic. Shape: wider than tall. Margins: Smooth (0 points). Echogenic foci: None (0 points). Total points: 4 ACR TI-RADS category: 4. IMPRESSION: Single category 4 thyroid nodule. Best practice guidelines suggest follow-up schedule as below ACR TI-RADS definitions and recommendations: TI-RADS 1 (benign): 0 points. FNA not needed. TI-RADS 2 (not suspicious): 2 points. FNA not needed. TI-RADS 3 (mildly suspicious): 3 points. "FNA if 2.5 cm or larger, follow up if 1.5 cm or larger (at 1, 3, and 5 years). TI-RADS 4 (moderately suspicious): 4-6 points. "FNA if 1.5 cm or larger, follow up if 1 cm or larger (at 1, 2, 3, and 5 years). TI-RADS 5 (highly suspicious): 7 points or more. "FNA if 1 cm or larger, follow up if 0.5 cm or larger (every year for 5 years). Reviewed by: Florian Parks MD on 07/10/2023 4:57 PM ÁNGEL Approved by: Florian Parks MD on 07/10/2023 4:57 PM ÁNGEL Station ID: [id number]
== END 2023-07-10 12:37 | disposition home or self-care (01) ==
LOC: DI 12:36
PROVIDERS: ATTEND Physician Assistant Medical
DX: E04.1 Nontoxic single thyroid nodule (principal)

== ENCOUNTER 2023-10-23 09:21 | Outpatient (CLI) | payer MEDICAID ==
[2023-10-23 13:00] LABS: ALBUMIN 3.7 g/dL (3.2-5.5); ALBUMIN/GLOBULIN RATIO 1.1 (1.0-2.2); ALKALINE PHOSPHATASE 81 IU/L (42-121); ALT ALANINE AMINOTRANSFERASE 20 IU/L (10-60); AST ASPARTATE AMINOTRANSFERASE 16 IU/L (10-42); BILIRUBIN,TOTAL 0.3 mg/dL (0.2-1.0); BUN - BLOOD UREA NITROGEN 12 mg/dL (6-20); CALCIUM 9.2 mg/dL (8.5-10.3); CARBON DIOXIDE - CO2 22 mmol/L (21-32); CHLORIDE 107 mmol/L (101-111); CHOL/HDL RATIO 3.4 (<4.4); CHOLESTEROL 171 mg/dL; CREATININE 0.6 mg/dL (0.6-1.3); GFR - MDRD 106 (>89); GLUCOSE 197 mg/dL (74-104); HDL CHOLESTEROL 51 mg/dL; LDL CHOLESTEROL,CALCULATED 79 mg/dL; LDL/HDL RATIO 1.5 (<4.4); POTASSIUM 4.1 mmol/L (3.5-4.5); SODIUM 137 mmol/L (135-145); TOTAL PROTEIN 7.2 g/dL (6.4-8.9); TRIGLYCERIDES 205 mg/dL (48-352); VLDL CHOLESTEROL 41 mg/dL
[2023-10-23 13:16] LABS: ESTIMATED AVERAGE GLUCOSE 206 mg/dL (70-100); HEMOGLOBIN A1c% 8.8 % (4.27-6.07)
== END 2023-10-23 09:22 | disposition home or self-care (01) ==
LOC: LAB.N 09:21
PROVIDERS: ATTEND Physician Assistant Medical
DX: E11.9 Type 2 diabetes mellitus without complications (principal)
CPT/HCPCS: 36415; 80053; 80061; 83036; 83721

== ENCOUNTER 2023-10-26 08:00 | Outpatient (CLI) | payer MEDICAID | END 2023-10-26 23:59 | disposition home or self-care (01) | LOC: LAB.WCP 08:00 | PROVIDERS: ATTEND Physician Assistant Medical | DX: J06.9 Acute upper respiratory infection, unspecified (principal) | CPT/HCPCS: 87635 ==

== ENCOUNTER 2023-11-24 07:38 | Outpatient (CLI) | payer MEDICAID | END 2023-11-24 07:39 | disposition home or self-care (01) | LOC: DI 07:38 | PROVIDERS: ATTEND Physician Assistant Medical | DX: I47.20 Ventricular tachycardia, unspecified (principal) | CPT/HCPCS: 93306 ==

== ENCOUNTER 2024-03-29 15:42 | Outpatient (CLI) | payer MEDICAID ==
--- NOTE | 2024-03-31 07:12 | Ultrasound Report ---
PROCEDURE: Duplex Ext Veins Bilateral INDICATIONS: Kristina Cannon PA-C TECHNIQUE: Real-time imaging, as well as color and pulse Doppler interrogation, were performed of the deep veins of both legs from the inguinal ligament to the popliteal fossa. Attempted visualization of the calf veins was performed. COMPARISON: None. FINDINGS: The deep veins are normally compressible, and free of intraluminal thrombus. Color and pu lse Doppler demonstrate normal phasic intravascular flow. There is normal augmentation response to d istal compression maneuver. IMPRESSION: No deep venous thrombosis of the visualized lower extremities. Reviewed by: Jesusita Ruby MD on 03/31/2024 7:10 AM PDT Approved by: Jesusita Ruby MD on 03/31/2024 7:10 AM PDT Station ID: [id number]
--- NOTE | 2024-03-31 07:14 | Ultrasound Report ---
PROCEDURE: Arterial Duplex Lwr Ext BL INDICATIONS: EDEMA, COLD FEET TECHNIQUE: Color and pulse Doppler interrogation was performed of both lower extremity arterial systems, with im age documentation. COMPARISON: None FINDINGS: Right lower extremity: Common femoral artery: 97 cm/sec, with triphasic flow. Deep femoral artery: 88 cm/sec, with triphasic flow. Proximal superficial femoral artery: 33 cm/sec, with triphasic flow. Mid superficial femoral artery: 38 cm/sec, with triphasic flow. Distal superficial femoral artery: 57 cm/sec, with triphasic flow. Popliteal artery: 125 cm/sec, with triphasic flow. Posterior tibial artery: 88 cm/sec, with triphasic flow. Anterior tibial artery/dorsalis pedis: 93 cm/sec, with triphasic flow. [place]-scale imaging description: No significant atherosclerotic plaque. Left lower extremity: Common femoral artery: 95 cm/sec, with triphasic flow. Deep femoral artery: 77 cm/sec, with triphasic flow. Proximal superficial femoral artery: 90 cm/sec, with triphasic flow. Mid superficial femoral artery: 62 cm/sec, with triphasic flow. Distal superficial femoral artery: 96 cm/sec, with triphasic flow. Popliteal artery: 90 cm/sec, with biphasic flow. Posterior tibial artery: 80 cm/sec, with triphasic flow. Anterior tibial artery/dorsalis pedis: 84 cm/sec, with triphasic flow. [place]-scale imaging description: No significant atherosclerotic plaque. IMPRESSION: Patent lower extremity vasculature without hemodynamically significant stenosis. Reviewed by: Jesusita Ruby MD on 03/31/2024 7:12 AM PDT Approved by: Jesusita Ruby MD on 03/31/2024 7:12 AM PDT Station ID: [id number]
== END 2024-03-29 15:43 | disposition home or self-care (01) ==
LOC: DI 15:42
PROVIDERS: ATTEND Physician Assistant Medical
DX: R68.89 Other general symptoms and signs (principal); R60.9 Edema, unspecified
CPT/HCPCS: 93925; 93970